=== PATIENT | male | born 1980 | race Caucasian/White ===

== ENCOUNTER 2021-12-30 11:34 | Inpatient (IN) ==
[2021-12-30 12:46] LABS: Basophils # (auto) 0.02 K/uL (0-0.2); Basophils % (auto) 0.2 %; Eosinophils # (auto) 0.08 K/uL (0-0.50); Eosinophils % (auto) 0.8 %; Hematocrit (blood only) 47.2 % (40.1-51.0); Hemoglobin 15.7 g/dl (14.0-18.0); Immature Granulocytes # (auto) 0.15 K/uL (0.00-0.02); Immature Granulocytes % (auto) 1.5 %; Lymphocytes # (auto) 2.46 K/uL (1.2-3.4); Mean Corpuscular Hemoglobin 28.3 pg (25.0-34.0); Mean Corpuscular Hgb Conc 33.3 g/dL (32.0-36.0); Mean Platelet Volume 9.6 fL (9.4-12.4); Monocytes # (auto) 0.67 K/uL (0.24-0.82); Monocytes % (auto) 6.8 %; Neutrophils # (auto) 6.46 K/uL (1.4-6.5); Neutrophils % (auto) 65.7 %; Platelet Count 204 K/uL (130-400); RDW Coefficient of Variation 13.1 % (11.5-14.5); RDW Standard Deviation 40.3 fL (36.4-46.3); Red Blood Count 5.55 M/uL (4.63-6.08); White Blood Count 9.84 K/ul (4.8-10.8)
--- NOTE | 2021-12-30 12:46 | Emergency Department Note ---
Impression & Plan Depression, Suicidal ideation ED Provider Note NAME: LONNIE POOLE AGE: 41 SEX: M ARRIVES VIA: Walk-In INFORMANT: Patient ED PROVIDER(S): Mauricio Ortiz MD CHIEF COMPLAINT: Depression, SI PLAN: Disposition: Voluntary inpatient psychiatric admission MEDICAL DECISION MAKING: The patient is a pleasant 41-year-old gentleman with a past medical history of anxiety depression who presents to the emergency department, accompanied by his for evaluation of worsening depression over the past couple of weeks with suicidal ideation and thoughts of suicide by overdose or crashing his car. He feels his symptoms of gotten severe and that he is unsafe to be at home and is interested in voluntary admission. He does follow with his psychiatrist in [place] via telehealth as they just moved from [place] in November. He reports having been hospitalized in 2013 for his depression. He reports recently recovering from pneumonia and was tested for COVID and this was negative. Otherwise denies any recent fevers, GI or symptoms. On arrival, the patient is melancholy appearing but in no acute distress, afebrile stable vital signs. He endorses SI with plan. He feels hopeless and "worthless". Exam was otherwise unremarkable. WBC, H/H, platelets wnl. Chemistry without acidosis. Electrolytes unremarkable. ALT 71 without prior for comparison. Otherwise, LFTs without significant abnormality. TSH elevated at 6.3 with free T4 wnl. UA without convincing evidence of infection. Drug screen unremarkable. Covid-19 RNA, NAAT negative. The patient was medically cleared. Patient accepted to . 201 signed. Triage Nursing notes reviewed and agree them. Prior medical records reviewed Vital Signs: reviewed and remarkable for no significant abnormalities Differential diagnosis: Mood disorder, infection, hypoglycemia, electrolyte abnormalities, cardiac sources, intracerebral event, toxicologic, trauma, neurologic, as well as other pathologies. ER treatment provided: See below. Laboratory studies: See below HPI: The patient is a pleasant 41-year-old gentleman with a past medical history of anxiety depression who presents to the emergency department, accompanied by his for evaluation of worsening depression over the past couple of weeks with suicidal ideation and thoughts of suicide by overdose or crashing his car. He feels his symptoms of gotten severe and that he is unsafe to be at home and is interested in voluntary admission. He does follow with his psychiatrist in [place] via telehealth as they just moved from [place] in November. He reports having been hospitalized in 2013 for his depression. He reports recently recovering from pneumonia and was tested for COVID and this was negative. Otherwise denies any recent fevers, GI or symptoms. ROS: See above HPI for pertinent positives & negatives. A total of 10 systems reviewed and were otherwise negative. VITALS:See Below PHYSICAL EXAMINATION: GENERAL: Awake, alert, melancholy-appearing, in no distress HENT: Normocephalic, atraumatic. Oropharynx unremarkable. EYES: Normal conjunctiva. Sclera non-icteric. NECK: Supple. No nuchal rigidity. FROM. No JVD. RESPIRATORY: Clear to auscultation. CARDIAC: Regular rate, normal rhythm. Extremities warm and well perfused. Pulses equal. ABDOMEN: Soft, non-distended. No tenderness to palpation. No rebound or guarding. No masses. RECTAL: Deferred. MUSCULOSKELETAL: Chest examination reveals no tenderness. The back is symmetrical on inspection without obvious abnormality. There is no CVA tenderness to palpation. No joint edema. LOWER EXTREMITIES: Calves are equal size bilaterally and non-tender. No edema. No discoloration. NEURO: Normal sensorium. No sensory or motor deficits noted. SKIN: No rash or jaundice noted. PSYCH: Endorses severe depression and SI with plan. He feels hopeless and "worthless". Mauricio Oritz MD Past Med/Surg History Medical History Depression Family History Other Family history non-contributory Social History Smoking Status: Never smoker Preferred Language: Tongan Communication Ability: Effective [employer] Required: No Beliefs That Will Affect Care: None Feels Safe at Home: Yes Assistive Devices: None Allergies Allergies Allergy/AdvReac Type Severity Reaction Status Date / Time Penicillins Allergy Anaphylaxis Verified 12/30/21 12:39 erythromycin base AdvReac Hives Verified 12/30/21 12:39 Home Meds Home Medications Medication Instructions Recorded Confirmed Caplyta 42 mg PO QPM 12/30/21 12/30/21 Claritin 10 mg PO DAILY 12/30/21 12/30/21 prednisone See Taper PO 12/30/21 Results & Data (ED) Vital Signs Vital Signs - 24 hr 12/30/21 11:41 12/30/21 13:36 Temperature 36.6 C Temperature Source Temporal Artery Scan Pulse Rate 69 Pulse Rate [Finger] 60 Pulse Rhythm [Finger] Regular Pulse Strength [Finger] Normal Respiratory Rate 18 18 Respiratory Effort / Characteristics Non-Labored Non-Labored Respiratory Depth Normal Normal Respiratory Pattern Regular Blood Pressure 126/92 Blood Pressure [Left Arm] 126/90 Blood Pressure Mean 103 Blood Pressure Mean [Left Arm] 102 Blood Pressure Position [Left Arm] Lying Pulse Oximetry 95 97 Oxygen Delivery Method Room Air Room Air Sepsis Recent Fever Within 48 Hours No Sepsis New/Unexplained Change in Mental Status No Sepsis Action Taken by Nursing No Action Required Laboratory Data Attestation: I reviewed the patient's lab results. Result diagrams: 12/30/21 12:31 12/30/21 12:31 Lab Results 12/30/21 12/30/21 12/30/21 Range/Units 12:25 12:31 12:31 WBC 9.84 (4.8-10.8) K/ul RBC 5.55 (4.63-6.08) M/uL Hgb 15.7 (14.0-18.0) g/dl Hct 47.2 (40.1-51.0) % MCV 85.0 (80.0-100.0) fL MCH 28.3 (25.0-34.0) pg MCHC 33.3 (32.0-36.0) g/dL RDW Std Deviation 40.3 (36.4-46.3) fL RDW Coeff of Brice 13.1 (11.5-14.5) % Plt Count 204 (130-400) K/uL MPV 9.6 (9.4-12.4) fL Immature Gran % (Auto) 1.5 % Neut % (Auto) 65.7 % Lymph % (Auto) 25.0 % Lanier % (Auto) 6.8 % Eos % (Auto) 0.8 % Baso % (Auto) 0.2 % Neut # (Auto) 6.46 (1.4-6.5) K/uL Lymph # (Auto) 2.46 (1.2-3.4) K/uL Lanier # (Auto) 0.67 (0.24-0.82) K/uL Eos # (Auto) 0.08 (0-0.50) K/uL Baso # (Auto) 0.02 (0-0.2) K/uL Immature Gran # (Auto) 0.15 H (0.00-0.02) K/uL Sodium 137 (136-145) mmol/L Potassium 4.0 (3.5-5.1) mmol/L Chloride 103 (98-107) mmol/L Carbon Dioxide 28 (21-32) mmol/L Anion Gap 6 (3-11) BUN 21 (6-23) mg/dl Creatinine 1.04 (0.6-1.4) mg/dl Est Cr Clr Drug Dosing 133.5 ml/min Est GFR ( Amer) 103.6 ml/min Est GFR (Non-Af Amer) 89.4 ml/min BUN/Creatinine Ratio 20.2 H (10-20) Glucose 89 (70-99(Fasting)) mg/dl Calcium 9.4 (8.5-10.1) mg/dl Total Bilirubin 0.7 (0.2-1.0) mg/dl AST 29 (13-39) U/L ALT 71 H (7-52) U/L Alkaline Phosphatase 48 (34-104) U/L Total Protein 7.0 (6.0-8.3) gm/dl Albumin 4.5 (3.4-5.0) gm/dl Globulin 2.5 (2.5-4.0) gm/dl Albumin/Globulin Ratio 1.8 (0.9-2) TSH (0.300-4.500) uIu/ml Free T4 (0.61-1.60) ng/dl Urine Color Urine Appearance (Clear) Urine pH (4.5-7.5) Ur Specific Spring (1.000-1.030) Urine Protein (Negative) Urine Glucose (UA) (Negative) Urine Ketones (Negative) Urine Blood (Negative) Urine Nitrite (Negative) Urine Bilirubin (Negative) Urine Urobilinogen (Negative) Ur Leukocyte Esterase (Negative) Salicylates (3.0-30) mg/dl Urine Opiates Screen (Neg) Ur Methadone, Qual (Neg) Acetaminophen (10-30) ug/ml Urine Barbiturates (Neg) Ur Phencyclidine (PCP) (Neg) U Amphetamin/Meth Scrn (Neg) MDMA (Ecstasy) Screen (Neg) U Benzodiazepines Scrn (Neg) Ur Cocaine Metabolite (Neg) U Marijuana (THC) Screen (Neg) Ethyl Alcohol mg/dL (<10.0) mg/dl SARS-CoV-2, RNA, NAAT NEGATIVE (NEGATIVE) 12/30/21 12/30/21 12/30/21 Range/Units 12:31 12:31 12:31 WBC (4.8-10.8) K/ul RBC (4.63-6.08) M/uL Hgb (14.0-18.0) g/dl Hct (40.1-51.0) % MCV (80.0-100.0) fL MCH (25.0-34.0) pg MCHC (32.0-36.0) g/dL RDW Std Deviation (36.4-46.3) fL RDW Coeff of Brice (11.5-14.5) % Plt Count (130-400) K/uL MPV (9.4-12.4) fL Immature Gran % (Auto) % Neut % (Auto) % Lymph % (Auto) % Lanier % (Auto) % Eos % (Auto) % Baso % (Auto) % Neut # (Auto) (1.4-6.5) K/uL Lymph # (Auto) (1.2-3.4) K/uL Lanier # (Auto) (0.24-0.82) K/uL Eos # (Auto) (0-0.50) K/uL Baso # (Auto) (0-0.2) K/uL Immature Gran # (Auto) (0.00-0.02) K/uL Sodium (136-145) mmol/L Potassium (3.5-5.1) mmol/L Chloride (98-107) mmol/L Carbon Dioxide (21-32) mmol/L Anion Gap (3-11) BUN (6-23) mg/dl Creatinine (0.6-1.4) mg/dl Est Cr Clr Drug Dosing ml/min Est GFR ( Amer) ml/min Est GFR (Non-Af Amer) ml/min BUN/Creatinine Ratio (10-20) Glucose (70-99(Fasting)) mg/dl Calcium (8.5-10.1) mg/dl Total Bilirubin (0.2-1.0) mg/dl AST (13-39) U/L ALT (7-52) U/L Alkaline Phosphatase (34-104) U/L Total Protein (6.0-8.3) gm/dl Albumin (3.4-5.0) gm/dl Globulin (2.5-4.0) gm/dl Albumin/Globulin Ratio (0.9-2) TSH 6.328 H (0.300-4.500) uIu/ml Free T4 (0.61-1.60) ng/dl Urine Color Urine Appearance (Clear) Urine pH (4.5-7.5) Ur Specific Spring (1.000-1.030) Urine Protein (Negative) Urine Glucose (UA) (Negative) Urine Ketones (Negative) Urine Blood (Negative) Urine Nitrite (Negative) Urine Bilirubin (Negative) Urine Urobilinogen (Negative) Ur Leukocyte Esterase (Negative) Salicylates < 3.0 L (3.0-30) mg/dl Urine Opiates Screen (Neg) Ur Methadone, Qual (Neg) Acetaminophen < 3 L (10-30) ug/ml Urine Barbiturates (Neg) Ur Phencyclidine (PCP) (Neg) U Amphetamin/Meth Scrn (Neg) MDMA (Ecstasy) Screen (Neg) U Benzodiazepines Scrn (Neg) Ur Cocaine Metabolite (Neg) U Marijuana (THC) Screen (Neg) Ethyl Alcohol mg/dL < 10.0 (<10.0) mg/dl SARS-CoV-2, RNA, NAAT (NEGATIVE) 12/30/21 12/30/21 12/30/21 Range/Units 12:31 13:30 13:30 WBC (4.8-10.8) K/ul RBC (4.63-6.08) M/uL Hgb (14.0-18.0) g/dl Hct (40.1-51.0) % MCV (80.0-100.0) fL MCH (25.0-34.0) pg MCHC (32.0-36.0) g/dL RDW Std Deviation (36.4-46.3) fL RDW Coeff of Brice (11.5-14.5) % Plt Count (130-400) K/uL MPV (9.4-12.4) fL Immature Gran % (Auto) % Neut % (Auto) % Lymph % (Auto) % Lanier % (Auto) % Eos % (Auto) % Baso % (Auto) % Neut # (Auto) (1.4-6.5) K/uL Lymph # (Auto) (1.2-3.4) K/uL Lanier # (Auto) (0.24-0.82) K/uL Eos # (Auto) (0-0.50) K/uL Baso # (Auto) (0-0.2) K/uL Immature Gran # (Auto) (0.00-0.02) K/uL Sodium (136-145) mmol/L Potassium (3.5-5.1) mmol/L Chloride (98-107) mmol/L Carbon Dioxide (21-32) mmol/L Anion Gap (3-11) BUN (6-23) mg/dl Creatinine (0.6-1.4) mg/dl Est Cr Clr Drug Dosing ml/min Est GFR ( Amer) ml/min Est GFR (Non-Af Amer) ml/min BUN/Creatinine Ratio (10-20) Glucose (70-99(Fasting)) mg/dl Calcium (8.5-10.1) mg/dl Total Bilirubin (0.2-1.0) mg/dl AST (13-39) U/L ALT (7-52) U/L Alkaline Phosphatase (34-104) U/L Total Protein (6.0-8.3) gm/dl Albumin (3.4-5.0) gm/dl Globulin (2.5-4.0) gm/dl Albumin/Globulin Ratio (0.9-2) TSH Cancelled (0.300-4.500) uIu/ml Free T4 0.84 (0.61-1.60) ng/dl Urine Color Yellow Urine Appearance Clear (Clear) Urine pH 5.0 (4.5-7.5) Ur Specific Spring 1.021 (1.000-1.030) Urine Protein Negative (Negative) Urine Glucose (UA) Negative (Negative) Urine Ketones Negative (Negative) Urine Blood Negative (Negative) Urine Nitrite Negative (Negative) Urine Bilirubin Negative (Negative) Urine Urobilinogen Negative (Negative) Ur Leukocyte Esterase Negative (Negative) Salicylates (3.0-30) mg/dl Urine Opiates Screen Neg (Neg) Ur Methadone, Qual Neg (Neg) Acetaminophen (10-30) ug/ml Urine Barbiturates Neg (Neg) Ur Phencyclidine (PCP) Neg (Neg) U Amphetamin/Meth Scrn Neg (Neg) MDMA (Ecstasy) Screen Neg (Neg) U Benzodiazepines Scrn Neg (Neg) Ur Cocaine Metabolite Neg (Neg) U Marijuana (THC) Screen Neg (Neg) Ethyl Alcohol mg/dL (<10.0) mg/dl SARS-CoV-2, RNA, NAAT (NEGATIVE) Administered Medications Hydroxyzine HCl (Hydroxyzine Hcl 25 Mg Tab) 50 mg PO HSZ PRN PRN Reason: Insomnia Stop: 01/29/22 14:28 Last Admin: 12/30/21 20:35 Dose: 50 mg Documented By: BOOKER Loratadine (Loratadine 10 Mg Tab) 10 mg PO HS JOHN Stop: 01/29/22 21:59 Last Admin: 12/30/21 20:36 Dose: 10 mg Documented By: BOOKER Non-Formulary Patient's Own Med - Caplyta 42 Mg Capsule 1 each PO QPM JONH Stop: 01/29/22 20:59 Last Admin: 12/30/21 20:35 Dose: 1 cap Documented By: BOOKER Discontinued Medications Miscellaneous (Caplyta~Order Awaiting Action) 1 each N/A QS JOHN Stop: 01/29/22 15:59 Last Admin: 12/30/21 17:34 Dose: Not Given Documented By: JAQUELIN Discharge Plan Visit Data Chief Complaint: Mental Health Evaluation Stated Complaint: SUICIDAL THOUGHTS, PSYCH ED Provider: Mauricio Ortiz Discharge Problem: Depression, Suicidal ideation Patient Disposition: Admitted As Inpatient Discharge Instructions Interventions: ED Discharge Assessment Last Done: 12/30/21 14:41
[2021-12-30 13:10] LABS: Albumin Globulin Ratio 1.8 (0.9-2); Albumin Level 4.5 gm/dl (3.4-5.0); BUN Creatinine Ratio 20.2 (10-20); Bilirubin,Total 0.7 mg/dl (0.2-1.0); Calcium 9.4 mg/dl (8.5-10.1); Creatinine Clr Calc Pharmacy 133.5 ml/min; Est GFR (African American) 103.6 ml/min; Est GFR (Non-African American) 89.4 ml/min; Globulin 2.5 gm/dl (2.5-4.0)
[2021-12-30 13:11] LABS: Acetaminophen < 3 ug/ml (10-30); Salicylate < 3.0 mg/dl (3.0-30)
[2021-12-30 13:42] LABS: Appearance Urine Clear (Clear); Bilirubin Urine Negative (Negative); Blood Urine Negative (Negative); Color Urine Yellow; Glucose Urine UA Negative (Negative); Ketones Urine Negative (Negative); Leukocyte Esterase Urine Negative (Negative); Nitrite Urine Negative (Negative); Protein Urine Negative (Negative); Specific Gravity Urine 1.021 (1.000-1.030); Urobilinogen Urine Negative (Negative)
[2021-12-30 14:17] LABS: Amphetamines+Metham, Urine Neg (Neg); Barbiturates, Urine Neg (Neg); Benzodiazepine, Urine Neg (Neg); Cocaine, Urine Neg (Neg); MDMA (Ecstacy), Urine Neg (Neg); Methadone, Urine Neg (Neg); Opiate, Urine Neg (Neg); Phencyclidine, Urine Neg (Neg)
[2021-12-30] MEDS ORDERED: MAGNESIUM HYDROXIDE SUSP 30 ML UDC PO PRN (14:29)
[2021-12-30] MEDS ORDERED: ALUMINUM/MAGNESIUM SUSP 30 ML UDC PO PRN (14:29)
[2021-12-30] MEDS ORDERED: BISMUTH SUBSALICYLATE LIQD 236 ML PO PRN (14:29)
[2021-12-30] MEDS ORDERED: hydrOXYzine HCl 25 MG TAB PO PRN (14:29)
[2021-12-30] MEDS ORDERED: ACETAMINOPHEN 325 MG TAB PO PRN (14:29)
[2021-12-30] MEDS ORDERED: SODIUM CHLORIDE 0.65% NA SOLN 45 ML (OCEAN) PRN (14:29)
[2021-12-30] MEDS: CAPLYTA 42 MG PO SCH (20:35)
[2021-12-30] MEDS: hydrOXYzine HCl 25 MG TAB PO PRN (20:35)
[2021-12-30] MEDS: LORATADINE 10 MG TAB PO SCH (20:36)
[2021-12-31 08:57] LABS: Cholesterol 183 mg/dl (0-200); Glucose Fasting 85 mg/dl (70-99); HDL Cholesterol 27 mg/dl; Triglycerides 512 mg/dl (0-150)
[2021-12-31 08:59] LABS: Chol HDL Ratio 6.8 (0-5)
[2021-12-31] MEDS ORDERED: LORATADINE 10 MG TAB PO SCH (09:00)
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
[2021-12-31] MEDS: CAPLYTA 42 MG PO SCH (21:10)
[2021-12-31] MEDS: LORATADINE 10 MG TAB PO SCH (21:10)
[2021-12-31] MEDS: hydrOXYzine HCl 25 MG TAB PO PRN (21:13)
[2022-01-01] MEDS: buPROPion SR 100 MG TABCR PO SCH (10:16)
--- NOTE | 2022-01-01 10:31 | Psychiatric Progress Note ---
Date of Service January 01, 2022 Impression / Recommendations Impression 41 yo male with a history of PTSD and hypomania alternating with primarily depression currently depressed with poor sleep after weeks of steroids for respiratory infection (though downslide started prior to the onset of illness). 01/02/2020: sleep improving, no change in depression other than SI less active here as engaged in groups, etc. (1) Bipolar II disorder with seasonal pattern: (2) Post traumatic stress disorder (PTSD): (3) Hypertriglyceridemia: Plan 01/01/22: Vistaril standing order. Risks/benefits/alternatives reviewed re: antidepressants for the treatment of depression and/or anxiety. The patient agreed to a trial of Wellbutrin SR 100 mg po qam. 12/31/21: The patient was admitted to the [facility] ([facility] mental health unit) on q15 min checks (behavioral with suicide precautions) for safety. The patient will participate in group, recreational, and milieu therapies and will be offered additional individual and family sessions as clinically appropriate. Risks/benefits/alternatives reviewed re: his current medications including but not limited to need for metabolic and TD monitoring. Reviewed his fasting labs from this am and he reports previously higher elevations of triglycerides and TSH. He is aware of higher risk of pancreatitis. Vistaril appears to be effective last night for sleep. His steroids were all but tapered by admission and aren't ordered here. LM for outpatient psychiatrist to coordinate care/discuss antidepressant options, at least for acute rescue as potentially failing Caplyta monotherapy. Inventory Assets Strengths: good historian, loves family Suicide Risk Level Suicide Risk Level: High-Moderate (q15 min suicide checks) Risk Factors Assessment Male: Yes : Yes Do You Have Access To A Gun?: No Mental Health Diagnoses: Yes Substance Use Disorders: No Previous Attempt: No Previous Psychiatric Hospitalization: Yes Protective Factors Assessment : Yes Responsible for Young Children: Yes Employed: Yes ([employer]) Stable Relationships: Yes Interval History Identifying Information LONNIE POOLE is a 41-year-old M who just moved to [place] from [place], has a history of bipolar depression, and was admitted on 12/30/21 14:29 on a 201 voluntary commitment for SI with plan. Chief Complaint "yeah I probably do need perked up." referring to his low energy/motivation. Review of Systems Sleep Information Total Hours of Sleep: 8 Sleep Comments: vistaril 50 mg Meal Information Percent Meal Consumed - Breakfast: 100 Percent Meal Consumed - Dinner: 100 Subjective Subjective Patient was seen & assessed and interval progress reviewed with nursing and social work. Patient now reports a history of chemo for Hodgkin's lymphoma in his early 20s. He was able to discuss how the experience "made me a better person" as he had grown up in a non-diverse [facility] and had narrow viewpoints. His sleep was not as restful last pm but still "so much better than home." and feels he is adjusting to Vistaril and would like to continue it. His psychiatrist and patient also report past trials of Seroquel, and Buspar. Took Zoloft up to 200 mg daily without incident for "years after [place]" Psychiatrist is invested in his care and will continue to see him via Telehealth. Physical Exam Psychiatric Orientation: alert and oriented x 3 Apperance: appropriately dressed and appropriately groomed Eye Contact: good eye contact Motor Behavior: no abnormal motor movements Speech: normal rate/rhythm/volume of speech Affect: + depressed affect Mood: + depressed mood Thought Process: goal directed thought process Thought Content: reality based without delusions Suicidal Thoughts: + reports suicidal thoughts (but more passive) Homicidal Thoughts: denies homicidal thoughts Hallucinations: no auditory hallucinations and no visual hallucinations Cognition: attention grossly intact and language grossly intact Estimated Intelligence: consistent with education level Insight: + limited insight Judgement: + limited judgement Vital Signs (Past 24 Hours) Last Vital Signs Temp 36.7 C 01/01/22 06:00 Pulse 78 01/01/22 06:33 Resp 16 01/01/22 06:00 BP 114/83 01/01/22 06:33 Pulse Ox 99 12/30/21 15:12 O2 Del Method 12/30/21 15:12 Results & Data ([facility]) Current Inpatient Medications Current Inpatient Medications: Current Inpatient Medications Acetaminophen (Acetaminophen 325 Mg Tab) 650 mg PO Q4H PRN PRN Reason: Headache or Minor Fever Stop: 01/29/22 14:28 Last Admin: 12/31/21 12:48 Dose: 650 mg Al Hydrox/Mg Hydrox/Simethicone (Aluminum/Magnesium Susp 30 Ml Udc) 30 ml PO Q4H PRN PRN Reason: GI Upset Stop: 01/29/22 14:28 Bismuth Subsalicylate (Bismuth Subsalicylate Liqd 236 Ml) 15 ml PO PRN PRN PRN Reason: Loose Stool Stop: 01/29/22 14:28 Bupropion HCl (Bupropion Sr 100 Mg Tabcr) 100 mg PO DAILY JOHN Stop: 01/31/22 09:29 Last Admin: 01/01/22 10:16 Dose: 100 mg Hydroxyzine HCl (Hydroxyzine Hcl 25 Mg Tab) 50 mg PO HSZ PRN PRN Reason: Insomnia Stop: 01/29/22 14:28 Last Admin: 12/31/21 21:13 Dose: 50 mg Hydroxyzine HCl (Hydroxyzine Hcl 25 Mg Tab) 25 mg PO Q4H PRN PRN Reason: Anxiety Stop: 01/29/22 14:28 Hydroxyzine HCl (Hydroxyzine Hcl 25 Mg Tab) 50 mg PO HS JOHN Stop: 01/31/22 21:59 Loratadine (Loratadine 10 Mg Tab) 10 mg PO HS JOHN Stop: 01/29/22 21:59 Last Admin: 12/31/21 21:10 Dose: 10 mg Magnesium Hydroxide (Magnesium Hydroxide Susp 30 Ml Udc) 30 ml PO DAILY PRN PRN Reason: Constipation Stop: 01/29/22 14:28 Non-Formulary Patient's Own Med - Caplyta 42 Mg Capsule 1 each PO QPM JOHN Stop: 01/29/22 20:59 Last Admin: 12/31/21 21:10 Dose: 1 cap Sodium Chloride (Sodium Chloride 0.65% Na Soln 45 Ml ([place])) 1 - 2 sprays NA PRN PRN PRN Reason: Nasal Dryness/Congestion Stop: 01/29/22 14:28 Mental Health & Subst Abuse Tx Therapist Name of Therapist: Dr. Llamas Warp Dresser Name of Warp Dresser: None
[2022-01-01] MEDS: CAPLYTA 42 MG PO SCH (21:20)
[2022-01-01] MEDS: hydrOXYzine HCl 25 MG TAB PO SCH (21:20)
[2022-01-01] MEDS: LORATADINE 10 MG TAB PO SCH (21:21)
[2022-01-02] MEDS: buPROPion SR 100 MG TABCR PO SCH (08:38)
--- NOTE | 2022-01-02 17:13 | Psychiatric Progress Note ---
Date of Service January 02, 2022 Impression / Recommendations Impression 41 yo male with a history of PTSD and hypomania alternating with depression, consistent with likely BPAD type II, currently depressed with poor sleep after weeks of steroids for respiratory infection (though downslide started prior to the onset of illness). The patient is deemed unstable and requires psychiatric hospitalization for diagnostic clarification, safety and stabilization, medication management and development of further coping skills. 01/03/2020: reviewed interim progress from Dr. Koroma. Side effects from Wellbutrin initiation yesterday but tolerating better today. Continues to have depression. (1) Bipolar II disorder with seasonal pattern: (2) Post traumatic stress disorder (PTSD): (3) Hypertriglyceridemia: Plan 01/01/22: Vistaril standing order. Risks/benefits/alternatives reviewed re: antidepressants for the treatment of depression and/or anxiety. The patient agreed to a trial of Wellbutrin SR 100 mg po qam. 12/31/21: The patient was admitted to the [facility] ([facility] health unit) on q15 min checks (behavioral with suicide precautions) for safety. The patient will participate in group, recreational, and milieu therapies and will be offered additional individual and family sessions as clinically appropriate. Risks/benefits/alternatives reviewed re: his current medications including but not limited to need for metabolic and TD monitoring. Reviewed his fasting labs from this am and he reports previously higher elevations of triglycerides and TSH. He is aware of higher risk of pancreatitis. Vistaril appears to be effective last night for sleep. His steroids were all but tapered by admission and aren't ordered here. LM for outpatient psychiatrist to coordinate care/discuss antidepressant options, at least for acute rescue as potentially failing Caplyta monotherapy. Inventory Assets Strengths: andrew perez Suicide Risk Level Suicide Risk Level: High-Moderate (q15 min suicide checks) Suicide Risk Level Comments: Intermittent SI but feels safe on the unit and agrees to alert nursing should SI worsen or he feel unable to remain safe. Risk Factors Assessment Male: Yes : Yes Do You Have Access To A Gun?: No Mental Health Diagnoses: Yes Substance Use Disorders: No Previous Attempt: No Previous Psychiatric Hospitalization: Yes Protective Factors Assessment : Yes Responsible for Young Children: Yes Employed: Yes ([employer]) Stable Relationships: Yes Interval History Identifying Information LONNIE POOLE is a 41-year-old M who just moved to [place] from [place], has a history of bipolar depression, and was admitted on 12/30/21 14:29 on a 201 voluntary commitment for SI with plan. Chief Complaint "I'm a little calmer today". Review of Systems Sleep Information Total Hours of Sleep: 7.5 Sleep Comments: vistaril 50 mg Meal Information Percent Meal Consumed - Breakfast: 100 Percent Meal Consumed - Lunch: 100 Percent Meal Consumed - Dinner: 90 Subjective Subjective Patient was seen & assessed and interval progress reviewed with treatment team nursing and social work. Had some side effects with Wellbutrin yesterday including tremulousness but feels this has lessened today. Some weird sensations while sleeping which he notes tend to occur when he starts a new medication. Had family meeting today. Feels his mind is a bit "clearer and calmer today" with less ruminative thoughts. No medication side effects today. Physical Exam Psychiatric Orientation: alert and oriented x 3 Apperance: appropriately dressed and appropriately groomed Eye Contact: good eye contact Motor Behavior: no abnormal motor movements Speech: normal rate/rhythm/volume of speech Affect: + depressed affect Mood: + depressed mood Thought Process: goal directed thought process Thought Content: reality based without delusions Suicidal Thoughts: denies suicidal intent; + reports suicidal thoughts (but more passive) and + reports suicidal plan (none that can carry out on unit) Homicidal Thoughts: denies homicidal thoughts Hallucinations: no auditory hallucinations and no visual hallucinations Cognition: attention grossly intact and language grossly intact Estimated Intelligence: consistent with education level Insight: + fair insight Judgement: + fair judgement Vital Signs (Past 24 Hours) Last Vital Signs Temp 36.6 C 01/02/22 06:00 Pulse 79 01/02/22 06:29 Resp 16 01/02/22 06:00 BP 101/76 01/02/22 06:29 Pulse Ox 99 12/30/21 15:12 O2 Del Method 12/30/21 15:12 Results & Data ([facility]) Current Inpatient Medications Current Inpatient Medications: Current Inpatient Medications Acetaminophen (Acetaminophen 325 Mg Tab) 650 mg PO Q4H PRN PRN Reason: Headache or Minor Fever Stop: 01/29/22 14:28 Last Admin: 12/31/21 12:48 Dose: 650 mg Al Hydrox/Mg Hydrox/Simethicone (Aluminum/Magnesium Susp 30 Ml Udc) 30 ml PO Q4H PRN PRN Reason: GI Upset Stop: 01/29/22 14:28 Bismuth Subsalicylate (Bismuth Subsalicylate Liqd 236 Ml) 15 ml PO PRN PRN PRN Reason: Loose Stool Stop: 01/29/22 14:28 Bupropion HCl (Bupropion Sr 100 Mg Tabcr) 100 mg PO DAILY JOHN Stop: 01/31/22 09:29 Last Admin: 01/02/22 08:38 Dose: 100 mg Hydroxyzine HCl (Hydroxyzine Hcl 25 Mg Tab) 50 mg PO HSZ PRN PRN Reason: Insomnia Stop: 01/29/22 14:28 Last Admin: 12/31/21 21:13 Dose: 50 mg Hydroxyzine HCl (Hydroxyzine Hcl 25 Mg Tab) 25 mg PO Q4H PRN PRN Reason: Anxiety Stop: 01/29/22 14:28 Hydroxyzine HCl (Hydroxyzine Hcl 25 Mg Tab) 50 mg PO HS JOHN Stop: 01/31/22 21:59 Last Admin: 01/01/22 21:20 Dose: 50 mg Loratadine (Loratadine 10 Mg Tab) 10 mg PO HS JOHN Stop: 01/29/22 21:59 Last Admin: 01/01/22 21:21 Dose: 10 mg Magnesium Hydroxide (Magnesium Hydroxide Susp 30 Ml Udc) 30 ml PO DAILY PRN PRN Reason: Constipation Stop: 01/29/22 14:28 Non-Formulary Patient's Own Med - Caplyta 42 Mg Capsule 1 each PO QPM JOHN Stop: 01/29/22 20:59 Last Admin: 01/01/22 21:20 Dose: 1 cap Sodium Chloride (Sodium Chloride 0.65% Na Soln 45 Ml ([place])) 1 - 2 sprays NA PRN PRN PRN Reason: Nasal Dryness/Congestion Stop: 01/29/22 14:28 Mental Health & Subst Abuse Tx Psychiatrist Name of Psychiatrist: Aron Bonds Psychiatrist's Psychiatric Appointment Comment: telemedicine Therapist Name of Therapist: Aron Llamas Therapist's Date of Therapist Appointment: 01/04/22 Time of Therapist Appointment: 1:30 pm Therapy Appointment Comment: telemedicine Information Scientist Name of Information Scientist: None Post Discharge Appointments Primary Care Physician Name Of Family Doctor: Doug Burdick [facility] Time of Appointment with PCP: Follow up with PCP as needed. Provider Appointment Comment: [address], [place] [address]
[2022-01-02] MEDS: CAPLYTA 42 MG PO SCH (20:46)
[2022-01-02] MEDS: LORATADINE 10 MG TAB PO SCH (20:47)
[2022-01-02] MEDS: hydrOXYzine HCl 25 MG TAB PO SCH (20:47)
[2022-01-03] MEDS: buPROPion SR 100 MG TABCR PO SCH (09:01)
--- NOTE | 2022-01-03 13:40 | Psychiatric Progress Note ---
Date of Service January 03, 2022 Impression / Recommendations Impression 41 yo male with a history of PTSD and hypomania alternating with depression, consistent with likely BPAD type II, currently depressed with poor sleep after weeks of steroids for respiratory infection (though downslide started prior to the onset of illness). The patient is deemed unstable and requires psychiatric hospitalization for diagnostic clarification, safety and stabilization, medication management and development of further coping skills. 01/04/2020:Mood is improving, no SI today. Anxiety is also lessening. Tolerating Wellbutrin SR without side effects. He prefers to continue with SR formulation, reviewed option for XL in the future. (1) Bipolar II disorder with seasonal pattern: (2) Post traumatic stress disorder (PTSD): (3) Hypertriglyceridemia: Plan 01/03/22: Continue with current medications and tx plan. 01/02/22: Continue with current medications and tx plan. Had family meeting. 01/01/22: Vistaril standing order. Risks/benefits/alternatives reviewed re: antidepressants for the treatment of depression and/or anxiety. The patient agreed to a trial of Wellbutrin SR 100 mg po qam. 12/31/21: The patient was admitted to the [facility] ([facility] mental health unit) on q15 min checks (behavioral with suicide precautions) for safety. The patient will participate in group, recreational, and milieu therapies and will be offered additional individual and family sessions as clinically appropriate. Risks/benefits/alternatives reviewed re: his current medications including but not limited to need for metabolic and TD monitoring. Reviewed his fasting labs from this am and he reports previously higher elevations of triglycerides and TSH. He is aware of higher risk of pancreatitis. Vistaril appears to be effective last night for sleep. His steroids were all but tapered by admission and aren't ordered here. LM for outpatient psychiatrist to coordinate care/discuss antidepressant options, at least for acute rescue as potentially failing Caplyta monotherapy. Inventory Assets Strengths: good historian, loves family Suicide Risk Level Suicide Risk Level: Moderate (q15 min suicide checks) Suicide Risk Level Comments: No SI today and depression is improving and feels safe on the unit and agrees to alert nursing should SI worsen or he feel unable to remain safe. Risk Factors Assessment Male: Yes : Yes Do You Have Access To A Gun?: No Mental Health Diagnoses: Yes Substance Use Disorders: No Previous Attempt: No Previous Psychiatric Hospitalization: Yes Protective Factors Assessment : Yes Responsible for Young Children: Yes Employed: Yes ([employer]) Stable Relationships: Yes Interval History Identifying Information LONNIE POOLE is a 41-year-old M who just moved to [place] from [place], has a history of bipolar depression, and was admitted on 12/30/21 14:29 on a 201 voluntary commitment for SI with plan. Chief Complaint "I'm feeling better". Review of Systems Sleep Information Total Hours of Sleep: 6.5 Sleep Comments: vistaril 50 mg Meal Information Percent Meal Consumed - Breakfast: 100 Percent Meal Consumed - Lunch: 100 Percent Meal Consumed - Dinner: 100 Subjective Subjective Patient was seen & assessed and interval progress reviewed with treatment team nursing and social work. Noticed a "dip" and "slowing down" sense last evening around 7pm that initially caused an increase in anxiety but he was able to use coping skills as at home anxiety would peek in the evenings and he worried that the dip would mean increased sleep difficulty. However he felt he coped with this change in energy well and was able to go to sleep and slept well. Today he feels his mood continues to improve with lessening of depression and no SI. No side effects from the Wellbutrin. Reviewed Wellbutrin SR versus XL and duration of action and potential reason for why he felt like medication was less present in his system yesterday evening. Physical Exam Psychiatric Orientation: alert and oriented x 3 Apperance: appropriately dressed and appropriately groomed Eye Contact: good eye contact Motor Behavior: no abnormal motor movements Speech: normal rate/rhythm/volume of speech Affect: + anxious affect Mood: + depressed mood Thought Process: goal directed thought process Thought Content: reality based without delusions Suicidal Thoughts: denies suicidal thoughts Homicidal Thoughts: denies homicidal thoughts Hallucinations: no auditory hallucinations and no visual hallucinations Cognition: attention grossly intact and language grossly intact Estimated Intelligence: consistent with education level Insight: + fair insight Judgement: + fair judgement Vital Signs (Past 24 Hours) Last Vital Signs Temp 36.7 C 01/03/22 06:32 Pulse 71 01/03/22 06:33 Resp 16 01/03/22 06:32 BP 115/81 01/03/22 06:33 Pulse Ox 99 12/30/21 15:12 O2 Del Method 12/30/21 15:12 Results & Data ([facility]) Current Inpatient Medications Current Inpatient Medications: Current Inpatient Medications Acetaminophen (Acetaminophen 325 Mg Tab) 650 mg PO Q4H PRN PRN Reason: Headache or Minor Fever Stop: 01/29/22 14:28 Last Admin: 12/31/21 12:48 Dose: 650 mg Al Hydrox/Mg Hydrox/Simethicone (Aluminum/Magnesium Susp 30 Ml Udc) 30 ml PO Q4H PRN PRN Reason: GI Upset Stop: 01/29/22 14:28 Bismuth Subsalicylate (Bismuth Subsalicylate Liqd 236 Ml) 15 ml PO PRN PRN PRN Reason: Loose Stool Stop: 01/29/22 14:28 Bupropion HCl (Bupropion Sr 100 Mg Tabcr) 100 mg PO DAILY JOHN Stop: 01/31/22 09:29 Last Admin: 01/03/22 09:01 Dose: 100 mg Hydroxyzine HCl (Hydroxyzine Hcl 25 Mg Tab) 50 mg PO HSZ PRN PRN Reason: Insomnia Stop: 01/29/22 14:28 Last Admin: 12/31/21 21:13 Dose: 50 mg Hydroxyzine HCl (Hydroxyzine Hcl 25 Mg Tab) 25 mg PO Q4H PRN PRN Reason: Anxiety Stop: 01/29/22 14:28 Hydroxyzine HCl (Hydroxyzine Hcl 25 Mg Tab) 50 mg PO HS JOHN Stop: 01/31/22 21:59 Last Admin: 01/02/22 20:47 Dose: 50 mg Loratadine (Loratadine 10 Mg Tab) 10 mg PO HS JOHN Stop: 01/29/22 21:59 Last Admin: 01/02/22 20:47 Dose: 10 mg Magnesium Hydroxide (Magnesium Hydroxide Susp 30 Ml Udc) 30 ml PO DAILY PRN PRN Reason: Constipation Stop: 01/29/22 14:28 Non-Formulary Patient's Own Med - Caplyta 42 Mg Capsule 1 each PO QPM JOHN Stop: 01/29/22 20:59 Last Admin: 01/02/22 20:46 Dose: 1 cap Sodium Chloride (Sodium Chloride 0.65% Na Soln 45 Ml ([place])) 1 - 2 sprays NA PRN PRN PRN Reason: Nasal Dryness/Congestion Stop: 01/29/22 14:28 Mental Health & Subst Abuse Tx Psychiatrist Name of Psychiatrist: [facility] - Dr. Bonds Psychiatrist's Psychiatric Appointment Comment: telemedicine Therapist Name of Therapist: Aron Hayes - Dr. Llamas Therapist's Date of Therapist Appointment: 01/04/22 Time of Therapist Appointment: 1:30 pm Therapy Appointment Comment: telemedicine [employer] Senior Manager Name of It [employer] Senior Manager: None Post Discharge Appointments Primary Care Physician Name Of Family Doctor: Doug Burdick Primary [facility] Time of Appointment with PCP: Follow up with PCP as needed. Provider Appointment Comment: [address], [place] [address]
[2022-01-03] MEDS: CAPLYTA 42 MG PO SCH (20:32)
[2022-01-03] MEDS: LORATADINE 10 MG TAB PO SCH (20:33)
[2022-01-03] MEDS: hydrOXYzine HCl 25 MG TAB PO SCH (20:33)
[2022-01-04] MEDS: buPROPion SR 100 MG TABCR PO SCH (08:40)
[2022-01-04] MEDS ORDERED: DESTROY THIS MEDICATION ONE (10:56)
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
== END 2022-01-04 15:07 | disposition home or self-care (01) | DRG 885 ==
LOC: ED 11:34 → 3S 14:29
DX: F43.10 Post-traumatic stress disorder, unspecified; Z81.8 Family history of other mental and behavioral disorders; Z88.0 Allergy status to penicillin; F31.81 Bipolar II disorder; E78.1 Pure hyperglyceridemia